=== PATIENT | female | born 1965 | race Caucasian/White ===

== ENCOUNTER 2019-02-06 19:14 | Emergency (ER) | payer OTHER ==
--- NOTE | 2019-02-06 19:59 | PDOC ---
Rapid Medical Evaluation Chief Complaint: Injury Time Seen by Provider: 02/06/19 19:57 Medical Evaluation: Allergies Allergy/AdvReac Type Severity Reaction Status Date / Time No Known Allergies Allergy Verified 02/06/19 19:57 02/06/19 19:58 Pt c/o: right ankle pain, fell off 1 step and twisted ankle, unable to ambulate Pt on brief exam: noted edema to lat right malleolus Pt ordered for: ankle xray Pt to proceed to the ED Discharge Disposition - Diagnosis Ankle injury - Referrals - Patient Instructions - Post Discharge Activity
[2019-02-06 20:00] VITALS: BP 179/91; PULSE 81; TEMP 98.2; BMI 28.1
[2019-02-06] MEDS ORDERED: IBUPROFEN 600 MG TABLET (FP) PO ONE ×2 (21:26→21:48)
--- NOTE | 2019-02-06 23:10 | PDOC ---
History of Present Illness - General Chief Complaint: Injury Stated Complaint: FALL/SWOLLEN LEFT ANKLE Time Seen by Provider: 02/06/19 19:57 History Source: Patient Exam Limitations: No Limitations Past History - Travel Traveled outside of the country in the last 30 days: No Close contact w/someone who was outside of country & ill: No - Past Medical History Allergies/Adverse Reactions: Allergies Allergy/AdvReac Type Severity Reaction Status Date / Time No Known Allergies Allergy Verified 02/06/19 19:57 Home Medications: Ambulatory Orders Ibuprofen 800 mg PO TID #30 tablet 02/06/19 Oxycodone HCl/Acetaminophen [Percocet 5-325 mg Tablet] 1 tab PO Q6H #12 tablet MDD 3 02/06/19 COPD: No - Immunization History Immunization Up to Date: Yes - Psycho Social/Smoking Cessation Hx Smoking History: Never smoked Hx Alcohol Use: No Drug/Substance Use Hx: No Review of Systems - Review of Systems Able to Perform ROS?: Yes Comments:: 02/06/19 23:55 CONSTITUTIONAL: Absent: fever, chills, diaphoresis, generalized weakness, malaise, loss of appetite HEENT: Absent: rhinorrhea, nasal congestion, throat pain, throat swelling, difficulty swallowing, mouth swelling, ear pain, eye pain, visual Changes CARDIOVASCULAR: Absent: chest pain, loss of consciousness, palpitations, irregular heart rate, peripheral edema RESPIRATORY: Absent: cough, shortness of breath, dyspnea with exertion, orthopnea, wheezing, stridor, hemoptysis GASTROINTESTINAL: Absent: abdominal pain, abdominal distension, nausea, vomiting, diarrhea, constipation, melena, hematochezia GENITOURINARY: Absent: dysuria, frequency, urgency, hesitancy, hematuria, flank pain, genital pain MUSCULOSKELETAL: Present: R ankle pain and swelling Absent: myalgia, arthralgia, joint swelling SKIN: Absent: rash, itching, pallor HEMATOLOGIC/IMMUNOLOGIC: Absent: easy bleeding, easy bruising, lymphadenopathy, frequent infections ENDOCRINE: Absent: unexplained weight gain, unexplained weight loss, heat intolerance, cold intolerance NEUROLOGIC: Absent: headache, focal weakness or paresthesias, dizziness, unsteady gait, seizure, mental status changes, bladder or bowel incontinence PSYCHIATRIC: Absent: anxiety, depression, suicidal or homicidal ideation, hallucinations. Is the patient limited Pashto proficient: No *Physical Exam - Vital Signs Last Vital Signs Temp Pulse Resp BP Pulse Ox 98.2 F 81 16 179/91 H 98 02/06/19 19:58 02/06/19 19:58 02/06/19 19:58 02/06/19 19:58 02/06/19 19:58 - Physical Exam Comments: 02/06/19 23:55 GENERAL: Well developed, well nourished. Awake and alert. No acute distress. HEENT: Normocephalic, atraumatic. PERRLA, EOMI. No conjunctival pallor. Sclera are non- icteric. Moist mucous membranes. Oropharynx is clear. NECK: Supple. Full ROM. No JVD. Carotid pulses 2+ and symmetric, without bruits. No thyromegaly. No lymphadenopathy. CARDIOVASCULAR: Regular rate and rhythm. No murmurs, rubs, or gallops. Distal pulses are 2+ and symmetric. PULMONARY: No evidence of respiratory distress. Lungs clear to auscultation bilaterally. No wheezing, rales or rhonchi. ABDOMINAL: Soft. Non-tender. Non-distended. No rebound or guarding. No organomegaly. Normoactive bowel sounds. MUSCULOSKELETAL Normal range of motion at all joints. No bony deformities or tenderness. No CVA tenderness. EXTREMITIES: Tenderness to palpation of the right medial malleolus with associated swelling. Decreased range of motion due to pain. No cyanosis. No clubbing. No edema. No calf tenderness. SKIN: Warm and dry. Normal capillary refill. No rashes. No jaundice. NEUROLOGICAL: Alert, awake, appropriate. Cranial nerves 2-12 intact. No deficits to light touch and temperature in face, upper extremities and lower extremities. No motor deficits in the in face, upper extremities and lower extremities. Normoreflexic in the upper and lower extremities. Normal speech. Toes are down- going bilaterally. Gait is normal without ataxia. PSYCHIATRIC: Cooperative. Good eye contact. Appropriate mood and affect. Procedures - Splinting Splint Location: Right: Ankle Pre-Proc Neuro Vasc Exam: normal Hand-Made Type: orthoglass Splint Type: Yes: Sugar Tong (RLE) Post-Proc Neuro Vasc Exam: unchanged from pre-exam Gerald Bandage: 4", 6" ED Treatment Course - RADIOLOGY Radiology Studies Ordered: Category Date Time Status FOOT-RIGHT [RAD] Stat Radiology 02/06/19 21:14 Taken - Medications Given in the ED: ED Medications Discontinued Medications Generic Name Dose Route Start Last Admin Trade Name Oneal PRN Reason Stop Dose Admin Ibuprofen 600 mg 02/06/19 21:26 02/06/19 21:55 Motrin - PO 02/06/19 21:27 600 mg ONCE ONE Administration Medical Decision Making - Medical Decision Making 02/06/19 23:56 The patient is a 3-year-old female in the past medical history presents to the ER for right ankle pain. She missed the last stair approximately 2 days ago and rolled her ankle. States that since then it has been very swollen and painful to walk on. Denies numbness and tingling weakness the affected extremity. A/P: Right ankle pain On exam tender to palpation of the right lateral and medial malleolus. Decreased range of motion due to pain with associated swelling. PMS intact. X-rays obtained of the right ankle. Possible avulsion fracture to the distal fibula. Patient placed in a sugar tong splint and made nonweightbearing. PMS still intact post-splinting. Motrin given for pain Patient to follow up with orthopedics this week. Referral given. I discussed the physical exam findings, ancillary test results and final diagnoses with the patient. I answered all of the patient's questions. The patient was satisfied with the care received and felt comfortable with the discharge plan and treatment plan. The Patient agrees to follow up with the primary care physician/specialist within 24-72 hours. Return precautions were given. Discharge - Discharge Information Problems reviewed: Yes Clinical Impression/Diagnosis: Avulsion fracture Ankle sprain Qualifiers: Encounter type: initial encounter Involved ligament of ankle: unspecified ligament Laterality: right Qualified Code(s): S93.401A - Sprain of unspecified ligament of right ankle, initial encounter Condition: Stable Disposition: HOME - Admission No - Additional Discharge Information Prescriptions: Ibuprofen 800 mg PO TID #30 tablet Oxycodone HCl/Acetaminophen [Percocet 5-325 mg Tablet] 1 tab PO Q6H #12 tablet MDD 3 - Follow up/Referral Referrals: Maura Dietrich MD [Primary Care Provider] - Trent Talley MD [Staff Physician] - - Patient Discharge Instructions Patient Printed Discharge Instructions: DI for Ankle Fracture Additional Instructions: You broke your ankle. Please keep your ankle elevated while at rest above the level of your heart to reduce swelling. You may take Motrin 800 mg every 8 hours to help reduce pain and swelling. Take the Percocet every 6 hours as needed for pain. Do not drink or drive after taking this medication as it may make you sleepy. Please take Colace to prevent constipation daily Please ice the area for 20 minute intervals at least 5 times a day to help reduce swelling. Please wear the splint until you can see orthopedics. Do not get it wet. Use crutches and do not put any weight on the leg. Please follow-up with orthopedics tomorrow. Please call the office to schedule an appointment for next week. Return to the emergency department if you have worsening pain, or unable to walk , numbness and tingling of the foot, or had any changes in her symptoms. Te rompiste el tobillo. Mantenga el tobillo elevado mientras descansa por encima del nivel de king corazn para reducir la hinchazn. Puede naeem Motrin 800 mg cada 8 horas para ayudar a reducir el dolor y la hinchazn. Loraine el Percocet cada 6 horas segn sea necesario para el dolor. No anthony ni maneje despus de naeem lissette medicamento, ya que puede causar sueo. Loraine Colace para prevenir el estreimiento diariamente. Coloque hielo en el rajan mane intervalos de 20 minutos al menos 5 veces al da para ayudar a reducir la hinchazn. Use la frula hasta que pueda lynette ortopedia. No lo mojes. Use muletas y no ponga peso sobre la pierna. Por favor, po un seguimiento con la ortopedia maana. Llame a la oficina para programar alexandria zoie para la prxima semana. Regrese al departamento de emergencias si tiene un empeoramiento del dolor, o no puede caminar, entumecimiento y hormigueo en el pie, o si tiene algn cambio en emile sntomas. Print Language: AUSTRALIAN - Post Discharge Activity Work/Back to School Note: Back to Work
== END 2019-02-06 23:16 | disposition home or self-care (01) ==
LOC: JERFT 19:14
PROC: 2W3QX1Z Immobilization of Right Lower Leg using Splint (ICD-10-PCS; principal; 2019-02-06)
DX: S82.891A Other fracture of right lower leg, initial encounter for closed fracture (principal); S93.491A Sprain of other ligament of right ankle, initial encounter; W10.8XXA Fall (on) (from) other stairs and steps, initial encounter; Y93.89 Activity, other specified; Y92.89 Other specified places as the place of occurrence of the external cause; Y99.8 Other external cause status
CPT/HCPCS: 73610-TC-RT-FY; 73630-TC-RT-FY; 99283-25